=== PATIENT | female | born 1975 | race Caucasian/White ===

== ENCOUNTER 2017-05-03 18:45 | Emergency (ER) | payer BC ==
[2017-05-03 18:49] VITALS: BP 126/90; PULSE 88; RESP 20; TEMP 98
--- NOTE | 2017-05-03 19:23 | ED ---
Upper Extremity HPI - General Chief Complaint: Extremity Injury, Upper Stated Complaint: laceration Time Seen by Provider: 05/03/17 18:53 Source: patient, RN notes reviewed, old records reviewed Mode of arrival: ambulatory Limitations: no limitations - History of Present Illness Initial Comments: 41-year-old female presents to the ED chief complaint of right wrist pain and thumb pain after she fell on outstretched hand. Patient reports that she tripped over a brick in her garden. Patient denies any recent fever or chills. She reports that she's had full range of motion of the wrist and fingers but there is mainly pain with flexion and extension of the thumb. She is right- handed. She denies any previous injuries to the right hand or wrist. Patient denies any recent fever, chills, shortness of breath, chest pain, back pain, abdominal pain, nausea vomiting, numbness or tingling, dysuria or hematuria, constipation or diarrhea, headaches or visual changes, or any other current symptoms Place: home, outdoors - Related Data Home Medications Medication Instructions Recorded Confirmed Amitriptyline HCl [Elavil] 25 mg PO HS 03/20/14 03/25/14 Gabapentin [Neurontin] 300 mg PO TID 03/20/14 03/25/14 traMADol HCl [Ultram] 50 mg PO Q6H PRN 03/20/14 03/25/14 Previous Rx's Medication Instructions Recorded Acetaminophen-Codeine 300-30mg 2 each PO Q6H PRN #30 tablet 03/26/14 [Tylenol #3] Ibuprofen [Motrin] 600 mg PO Q8HR PRN #20 tab 05/03/17 Allergies Allergy/AdvReac Type Severity Reaction Status Date / Time No Known Allergies Allergy Verified 05/03/17 18:49 Review of Systems ROS Statement: Those systems with pertinent positive or pertinent negative responses have been documented in the HPI. ROS Other: All systems not noted in ROS Statement are negative. Past Medical History Past Medical History: Fibromyalgia, Rheumatoid Arthritis (RA) History of Any Multi-Drug Resistant Organisms: None Reported Past Surgical History: Orthopedic Surgery, Tubal Ligation, Uterine Ablation Additional Past Surgical History / Comment(s): left ankle surg., right wrist surg. Past Anesthesia/Blood Transfusion Reactions: No Reported Reaction Past Psychological History: No Psychological Hx Reported Smoking Status: Never smoker Past Alcohol Use History: Rare Past Drug Use History: None Reported - Past Family History Father Family Medical History: Cancer General Exam - General Exam Comments Initial Comments: 41-year-old female. Limitations: no limitations General appearance: alert, in no apparent distress Head exam: Present: atraumatic, normocephalic, normal inspection Eye exam: Present: normal appearance, PERRL, EOMI. Absent: scleral icterus, conjunctival injection, periorbital swelling ENT exam: Present: normal exam, mucous membranes moist Neck exam: Present: normal inspection. Absent: tenderness, meningismus, lymphadenopathy Respiratory exam: Present: normal lung sounds bilaterally. Absent: respiratory distress, wheezes, rales, rhonchi, stridor Cardiovascular Exam: Present: regular rate, normal rhythm, normal heart sounds. Absent: systolic murmur, diastolic murmur, rubs, gallop, clicks GI/Abdominal exam: Present: soft, normal bowel sounds. Absent: distended, tenderness, guarding, rebound, rigid Extremities exam: Present: normal inspection, full ROM, normal capillary refill. Absent: tenderness, pedal edema, joint swelling, calf tenderness Right Elbow exam: Present: normal inspection, full ROM Forearm Wrist exam: Present: tenderness ( over thumb), swelling, tenderness over anatomical snuff box, pain with axial thumb loading. Absent: normal inspection, erythema, other Hand Wrist exam: Present: full ROM, tenderness, swelling. Absent: normal inspection Neuro motor exam: Present: wrist extension intact, thumb opposition intact, thumb IP flexion intact, thumb adduction intact, fingers 2-5 abduction intact Neurosensory exam: Present: radial nerve intact, ulnar nerve intact, median nerve intact Vascular: Present: normal capillary refill Back exam: Present: normal inspection Neurological exam: Present: alert, oriented X3, CN II-XII intact Psychiatric exam: Present: normal affect, normal mood Skin exam: Present: warm, dry, intact, normal color. Absent: rash Course Vital Signs 05/03/17 05/03/17 18:46 19:59 Temperature 98 F 98 F Pulse Rate 88 88 Respiratory 20 20 Rate Blood Pressure 126/90 126/90 O2 Sat by Pulse 98 98 Oximetry Procedures - Orthopedic Splinting/Casting Injury #1 Side: right Upper Extremity Injury Location: wrist Upper Extremity Immobilizer: thumb spica Medical Decision Making - Medical Decision Making 41-year-old female presents to the ED chief complaint of right wrist pain and thumb pain after she fell on outstretched hand. Patient reports that she tripped over a brick in her garden. Patient denies any recent fever or chills. She reports that she's had full range of motion of the wrist and fingers but there is mainly pain with flexion and extension of the thumb. She is right- handed. Patient does have some tenderness and swelling over the thenar eminence. Patient has pain with axial thumb loading. Patient answers reviewed and negative for any fractures. Patient likely has a significant thumb sprain, skiers thumb. Patient was placed in a thumb spica splint. She is also tender over the anatomical snuffbox. Discussed that she needs to remain in splint follow up with orthosis in the next week. Patient agrees to treatment plan will comply. Return parameters were discussed. - Radiology Data Radiology results: report reviewed X-rays negative for any acute process. Disposition Clinical Impression: Sprain of right thumb, Wrist sprain Disposition: HOME SELF-CARE Condition: Good Instructions: Wrist Injury (ED), Skier's Thumb (ED) Additional Instructions: Patient advised to remain in the splint for the next week and a half. Patient should be reevaluated by orthopedics. Patient continues to have pain possibility of needing a re-x-ray taken to confirm no evidence of a scaphoid fracture. Patient should apply ice over the area. Take anti-inflammatory medications as prescribed. Return to the emergency department if any alarming signs or symptoms occur. Prescriptions: Ibuprofen [Motrin] 600 mg PO Q8HR PRN #20 tab PRN Reason: Pain Referrals: Katey Dumont DO [Primary Care Provider] - 1-2 days Franck May DO [Doctor of Osteopathic Medicine] - 1-2 days Time of Disposition: 19:48
--- NOTE | 2017-05-03 19:38 | XR ---
EXAMINATION TYPE: XR hand complete RT DATE OF EXAM: 05/03/2017 COMPARISON: NONE HISTORY: Pain TECHNIQUE: 3 views FINDINGS: Metacarpals appear intact. I see no fracture nor dislocation. Joint spaces are normal. IMPRESSION: Negative right hand exam.
--- NOTE | 2017-05-03 19:40 | XR ---
EXAMINATION TYPE: XR wrist complete RT DATE OF EXAM: 05/03/2017 COMPARISON: NONE HISTORY: Pain TECHNIQUE: 4 views FINDINGS: I see no fracture nor dislocation. Joint spaces are normal. Scaphoid appears normal. IMPRESSION: Normal right wrist
== END 2017-05-03 19:59 | disposition home or self-care (01) ==
LOC: EC 18:45
DX: S63.501A Unspecified sprain of right wrist, initial encounter (principal); S63.601A Unspecified sprain of right thumb, initial encounter; Z79.899 Other long term (current) drug therapy; W01.0XXA Fall on same level from slipping, tripping and stumbling without subsequent striking against object, initial encounter; Y92.007 Garden or yard of unspecified non-institutional (private) residence as the place of occurrence of the external cause
CPT/HCPCS: 29125; 99284

== ENCOUNTER → 2017-08-05 | Outpatient (CLI) | payer BC ==
--- NOTE | 2017-08-07 10:55 | MM ---
Reason for exam: screening (asymptomatic). Last mammogram was performed 3 years and 4 months ago. History: Patient is postmenopausal. Family history of breast cancer in paternal grandmother. Took hormonal contraceptives for 1 year 5 months beginning at age 32. Physical Findings: A clinical breast exam by your physician is recommended on an annual basis and results should be correlated with mammographic findings. MG Screening Mammo w CAD Bilateral CC and MLO view(s) were taken. Prior study comparison: March 21, 2014, bilateral MG screening mammo w CAD. August 20, 2010, bilateral screening mammogram free. There are scattered fibroglandular densities. No significant changes when compared with prior studies. ASSESSMENT: Negative, BI-RAD 1 RECOMMENDATION: Routine screening mammogram of both breasts in 1 year.
== END | disposition home or self-care (01) ==
LOC: RADMAMWWP 11:12
PROVIDERS: ATTEND Family Medicine
DX: Z12.31 Encounter for screening mammogram for malignant neoplasm of breast (principal)

== ENCOUNTER → 2017-08-08 | Outpatient (CLI) | payer BC ==
[2017-08-08 17:24] LABS: Basophils % (A) 1 %; CH 30.1; CHCM 33.7; Eosinophils # (A) 0.1 k/uL (0-0.7); Eosinophils % (A) 2 %; HCT 37.7 % (34.0-46.0); HDW 2.76; HGB 12.6 gm/dL (11.4-16.0); Luc # (Auto) 0.11; Luc % (Auto) 2; Lymphocytes # (A) 1.9 k/uL (1.0-4.8); Lymphocytes % (A) 42 %; MCH 29.9 pg (25.0-35.0); MCHC 33.3 g/dL (31.0-37.0); MCV 89.8 fL (80.0-100.0); Mean Platelet Volume 7.2; Monocytes # (A) 0.2 k/uL (0-1.0); Monocytes % (A) 4 %; Neutrophils # (A) 2.2 k/uL (1.3-7.7); Neutrophils % (A) 50 %; RDW 12.8 % (11.5-15.5); WBC 4.5 k/uL (3.8-10.6); WBC (Perox) 4.68
[2017-08-08 17:49] LABS: ALT 29 U/L (9-52); AST 16 U/L (14-36); Alkaline Phosphatase 61 U/L (38-126); Anion Gap 8 mmol/L; Blood Urea Nitrogen 18 mg/dL (7-17); Calcium 9.2 mg/dL (8.4-10.2); Carbon Dioxide 22 mmol/L (22-30); Chloride 110 mmol/L (98-107); Cholesterol 198 mg/dL (<200); Glucose 81 mg/dL (74-99); HDL Cholesterol 48 mg/dL (40-60); Non-African American GFR(MDRD) >60 (>60 ml/min/1.73 sqM); Potassium 4.5 mmol/L (3.5-5.1); Sodium 140 mmol/L (137-145); Total Bilirubin 0.4 mg/dL (0.2-1.3); Total Protein 6.6 g/dL (6.3-8.2)
[2017-08-08 18:42] LABS: Erythrocyte Sedimentation Rate 9 mm/hr (0-20)
[2017-08-08 20:16] LABS: Hemoglobin A1C 4.7 % (4.2-6.1)
== END | disposition home or self-care (01) ==
LOC: LABWHC1 16:33
PROVIDERS: ATTEND Family Medicine
DX: G43.909 Migraine, unspecified, not intractable, without status migrainosus (principal); M79.7 Fibromyalgia
CPT/HCPCS: 36415; 80053; 80061; 83036; 85025; 85652

== ENCOUNTER → 2018-12-17 | Outpatient (CLI) | payer BC ==
[2018-12-17 12:47] LABS: Basophils % (A) 1 %; Eosinophils # (A) 0.2 k/uL (0-0.7); Eosinophils % (A) 4 %; HCT 40.6 % (34.0-46.0); HGB 13.7 gm/dL (11.4-16.0); Lymphocytes % (A) 35 %; MCH 29.2 pg (25.0-35.0); MCHC 33.7 g/dL (31.0-37.0); MCV 86.7 fL (80.0-100.0); Mean Platelet Volume 6.5; Monocytes # (A) 0.2 k/uL (0-1.0); Monocytes % (A) 3 %; Neutrophils # (A) 3.2 k/uL (1.3-7.7); Neutrophils % (A) 55 %; Platelet Count 184 k/uL (150-450); RBC 4.69 m/uL (3.80-5.40); RDW 13.2 % (11.5-15.5); WBC 5.8 k/uL (3.8-10.6)
[2018-12-17 19:57] LABS: Albumin 4.1 g/dL (3.80-4.90); Albumin/Globulin Ratio 1.86 (1.60-3.17); Anion Gap 7.9 mmol/L (4.00-12.00); Calcium 9.2 mg/dL (8.7-10.3); Carbon Dioxide 26.1 mmol/L (21.6-31.8); Globulin 2.2 g/dL (1.6-3.3); LDL Cholesterol,Calculated 143.2 mg/dL (0.0-131.0); Potassium 4.2 mmol/L (3.5-5.5); Total Bilirubin 0.4 mg/dL (0.3-1.2); Total Protein 6.3 g/dL (6.2-8.2); VLDL Calculation 29.8 mg/dL (5.00-40.00)
[2018-12-17 21:44] LABS: Hemoglobin A1C 4.8 % (4.0-6.0)
== END | disposition home or self-care (01) ==
LOC: LABWHC1 11:29
PROVIDERS: ATTEND Family Medicine
DX: G43.909 Migraine, unspecified, not intractable, without status migrainosus (principal); M79.7 Fibromyalgia
CPT/HCPCS: 36415; 80053; 80061; 83036; 84443; 85025

== ENCOUNTER → 2018-12-28 | Outpatient (CLI) | payer BC ==
--- NOTE | 2018-12-31 13:19 | MM ---
Reason for exam: screening (asymptomatic). Last mammogram was performed 1 year and 5 months ago. History: Patient is postmenopausal. Family history of breast cancer in paternal grandmother. Took hormonal contraceptives for 1 year 5 months beginning at age 32. Physical Findings: A clinical breast exam by your physician is recommended on an annual basis and results should be correlated with mammographic findings. MG 3D Screening Mammo W/Cad Bilateral CC and MLO view(s) were taken. Prior study comparison: August 05, 2017, bilateral MG screening mammo w CAD. March 21, 2014, bilateral MG screening mammo w CAD. There are scattered fibroglandular densities. No significant changes when compared with prior studies. ASSESSMENT: Benign, BI-RAD 2 RECOMMENDATION: Routine screening mammogram of both breasts in 1 year.
== END | disposition home or self-care (01) ==
LOC: RADMAMWWP 16:07
PROVIDERS: ATTEND Family Medicine
DX: Z12.31 Encounter for screening mammogram for malignant neoplasm of breast (principal)
CPT/HCPCS: 77063; 77067

== ENCOUNTER → 2021-01-14 | Outpatient (CLI) | payer BC ==
--- NOTE | 2021-01-18 11:45 | MM ---
Reason for exam: screening (asymptomatic). Last mammogram was performed 2 years and 1 month ago. History: Patient is postmenopausal. Family history of breast cancer in paternal grandmother and breast cancer in sister at age 50. Took hormonal contraceptives for 1 year 5 months beginning at age 32. Physical Findings: A clinical breast exam by your physician is recommended on an annual basis and results should be correlated with mammographic findings. MG Screening Mammo w CAD Bilateral CC and MLO view(s) were taken. Prior study comparison: December 28, 2018, bilateral MG 3d screening mammo w/cad. August 05, 2017, bilateral MG screening mammo w CAD. There are scattered fibroglandular densities. There are benign appearing round calcifications bilaterally. There is no discrete abnormality. ASSESSMENT: Benign, BI-RAD 2 RECOMMENDATION: Routine screening mammogram of both breasts in 1 year.
== END | disposition home or self-care (01) ==
LOC: RADMAMWWP 15:37
PROVIDERS: ATTEND Family Medicine
DX: Z12.31 Encounter for screening mammogram for malignant neoplasm of breast (principal)
CPT/HCPCS: 77067

== ENCOUNTER → 2022-01-18 | Outpatient (CLI) | payer BC ==
--- NOTE | 2022-01-18 08:49 | US ---
EXAMINATION TYPE: US abdomen complete DATE OF EXAM: 01/18/2022 COMPARISON: NONE CLINICAL HISTORY: R10.84 abdominal pain. Pain. EXAM MEASUREMENTS: Liver Length: 17.1 cm Gallbladder Wall: 0.28 cm CBD: 0.37 cm Spleen: 14.0 cm Right Kidney: 11.4 x 6.8 x 4.9 cm Left Kidney: 11.7 x 5.9 x 5.7 cm Limited due to gas and patient body habitus. Pancreas: Tail slightly limited due to gas. Liver: Increased echogenicity and attenuation. Measures upper limits of normal. Appears coarse in ec hotexture. Gallbladder: Limited, there appears to be posterior shadowing in the area of the gallbladder and hyp erechoic areas within. Evidence for sonographic Whaley's sign: No. CBD: Limited, measured at 0.37 cm. Spleen: Measures slightly enlarged. Right Kidney: No hydronephrosis or masses seen Left Kidney: No hydronephrosis or masses seen Upper IVC: Appears wnl Abd Aorta: Proximal portion appears ectatic measuring cm 2.7 cm AP. Limited visibility of iliacs. Suboptimal study. No aneurysm in the visualized portion of the abdominal aorta seen extending through the bifurcation. Visualized portion of pancreas homogeneous in echotexture without worrisome mass or ductal dilatation. IVC is seen near hepatic dome. Visualized liver is heterogeneously hyperechoic in appearance. Evaluation for focal masses suboptimal due to the heterogeneity. No surrounding ascites. No right-sided hydronephrosis. No biliary dilatati on. Gallbladder poorly distended with shadowing internal structure suggesting stone filled contracted gallbladder. Gallbladder wall thickness within normal limits. No surrounding ascites. Sonographic Mu rphy's sign negative. Splenomegaly seen measuring 14.0 cm long axis. No focal intrasplenic mass. No surrounding ascites. Le ft kidney normal in size without hydronephrosis. IMPRESSION: 1. Heterogeneous hyperechoic appearance of liver could reflect product of diffuse fatty infiltration and/or underlying hepatocellular disease. Presence of mild splenomegaly increases suspicion for the l atter. No intra-abdominal ascites identified currently. Correlate clinically. Imaging guided random b iopsy of liver can be performed to further evaluate if desired. 2. Stone filled somewhat contracted gallbladder without secondary ultrasound evidence for acute maya cystitis.
--- NOTE | 2022-01-18 10:21 | US ---
EXAMINATION TYPE: US pelvis complete transvag DATE OF EXAM: 01/18/2022 COMPARISON: NONE CLINICAL HISTORY: R10.84 abdominal pain. Chronic LLQ pain. Hx 1 miscarriage. Hysterectomy. Patient munguia s both ovaries. . TECHNIQUE: Transvaginal (TV) and Transabdominal (TA) . Transabdominal sonographic images of the pel vis were acquired. Transvaginal sonographic images were medically necessary to better assess the fol lowing anatomy: ovaries. Date of LMP: At time of hysterectomy. EXAM MEASUREMENTS: Right Ovary: Not visualized. Left Ovary: 4.1 x 3.4 x 2.5 cm 1. Uterus: Surgically absent. 2. Endometrium: - 3. Right Ovary: Not visualized. 4. Left Ovary: Anechoic areas seen. #1: 1.6 x 1.3 x 1.0 cm. #2: 1.1 x 1.8 x 1.6 cm. 5. Bilateral Adnexa: Fluid seen within the right adnexa. 6. Posterior cul-de-sac: Appears wnl. Uterus is surgically absent. Left ovary is normal in size. Left ovary has slightly lobulated contour. Possible thin-walled 1.3 cm cyst in the periphery of left ovary not completely anechoic suggesting s ome internal blood products. Trace free fluid in the right adnexa. Right ovary not clearly identified. IMPRESSION: No suspicious adnexal masses. Normal or abnormal right ovary not identified.
== END | disposition home or self-care (01) ==
LOC: RADUSWWP 06:55
PROVIDERS: ATTEND Family Medicine
DX: K76.89 Other specified diseases of liver (principal); K82.8 Other specified diseases of gallbladder
CPT/HCPCS: 76700; 76830; 76856

== ENCOUNTER → 2022-02-16 | Outpatient (CLI) | payer BC ==
--- NOTE | 2022-02-17 11:43 | MM ---
Reason for exam: screening (asymptomatic). Last mammogram was performed 1 year and 1 month ago. History: Patient is postmenopausal, history of colon cancer, and history of other cancer. Family history of breast cancer in paternal grandmother and breast cancer in sister at age 50. Took hormonal contraceptives for 1 year 5 months beginning at age 32. Physical Findings: A clinical breast exam by your physician is recommended on an annual basis and results should be correlated with mammographic findings. MG 3D Screening Mammo W/Cad Bilateral CC, MLO, and XCCL view(s) were taken. Prior study comparison: January 14, 2021, bilateral MG screening mammo w CAD. August 05, 2017, bilateral MG screening mammo w CAD. There are scattered fibroglandular densities. No significant changes when compared with prior studies. ASSESSMENT: Benign, BI-RAD 2 RECOMMENDATION: Routine screening mammogram of both breasts in 1 year.
== END | disposition home or self-care (01) ==
LOC: RADMAMWWP 10:46
PROVIDERS: ATTEND Family Medicine
DX: Z12.31 Encounter for screening mammogram for malignant neoplasm of breast (principal); Z78.0 Asymptomatic menopausal state; Z85.038 Personal history of other malignant neoplasm of large intestine; Z80.3 Family history of malignant neoplasm of breast
CPT/HCPCS: 77063; 77067

== ENCOUNTER → 2022-10-03 | Outpatient (CLI) | payer BC ==
[2022-10-03 15:19] LABS: HCT 44.3 % (37.2-46.3); MCH 28.7 pg (27.0-32.0); MCHC 31.6 g/dL (32.0-37.0); MCV 90.8 fL (80.0-97.0); Mean Platelet Volume 11.3 fL (9.5-12.2); NRBC Per 100 WBC 0 /100 WBCS (0.0-0.0); Platelet Count 140 X 10*3/uL (140-440); RBC 4.88 X 10*6/uL (4.10-5.20); WBC 4.75 X 10*3/uL (4.50-10.00)
[2022-10-03 15:31] LABS: ALT 22 U/L (8-44); AST 11 U/L (13-35); African American GFR (CKD) 118.9 (60.0-200.0); Albumin 4.1 g/dL (3.8-4.9); Albumin/Globulin Ratio 1.97 (1.60-3.17); Alkaline Phosphatase 67 U/L (41-126); BUN/Creat Ratio 23.35 Ratio (12.00-20.00); Blood Urea Nitrogen 16.3 mg/dL (9.0-27.0); Calcium 9.2 mg/dL (8.7-10.3); Carbon Dioxide 21.7 mmol/L (20.0-27.5); Chloride 107 mmol/L (96-109); Chol/HDL Ratio 4.54 Ratio; Globulin 2.1 g/dL (1.6-3.3); Glucose 88 mg/dL (70-110); LDL Cholesterol,Calculated 113.7 mg/dL (0.0-131.0); Non-African American GFR(CKD) 102.6 (60.0-200.0); Potassium 4.1 mmol/L (3.5-5.5); Sodium 141 mmol/L (135-145); Total Protein 6.1 g/dL (6.2-8.2)
[2022-10-03 15:32] LABS: Iron 55 ug/dL (50-170)
[2022-10-04 10:13] LABS: Zinc, Serum 76 ug/dL (60-130)
[2022-10-05 01:49] LABS: % Iron Saturation 21.51 (12.00-45.00); Total Iron Binding Capacity 258 ug/dL (228-460)
== END | disposition home or self-care (01) ==
LOC: LABWHC1 09:19
DX: E11.9 Type 2 diabetes mellitus without complications (principal); K91.1 Postgastric surgery syndromes; D51.8 Other vitamin B12 deficiency anemias; E55.9 Vitamin D deficiency, unspecified; E78.00 Pure hypercholesterolemia, unspecified; D50.9 Iron deficiency anemia, unspecified; Z98.84 Bariatric surgery status
CPT/HCPCS: 36415; 80053; 80061; 82306; 82607; 82728; 82746; 83036; 83540; 83550; 84207; 84425; 84590; 84630; 85027

== ENCOUNTER → 2023-01-13 | Outpatient (CLI) | payer BC ==
[2023-01-13 11:24] LABS: % Iron Saturation 30.68 (12.00-45.00); ALT 8 U/L (8-44); AST 9 U/L (13-35); African American GFR (CKD) 97.7 (60.0-200.0); Albumin 3.8 g/dL (3.8-4.9); Albumin/Globulin Ratio 1.49 (1.60-3.17); Alkaline Phosphatase 54 U/L (41-126); BUN/Creat Ratio 16.26 Ratio (12.00-20.00); Blood Urea Nitrogen 13.3 mg/dL (9.0-27.0); Calcium 9.5 mg/dL (8.7-10.3); Carbon Dioxide 26.1 mmol/L (20.0-27.5); Chloride 108 mmol/L (96-109); Chol/HDL Ratio 5.09 Ratio; Ferritin 88.9 ng/mL (10.0-291.0); Globulin 2.5 g/dL (1.6-3.3); Glucose 94 mg/dL (70-110); Iron 68 ug/dL (50-170); LDL Cholesterol,Calculated 132.1 mg/dL (0.0-131.0); Non-African American GFR(CKD) 84.3 (60.0-200.0); Potassium 4.7 mmol/L (3.5-5.5); Sodium 143 mmol/L (135-145); Total Iron Binding Capacity 223 ug/dL (228-460); Total Protein 6.3 g/dL (6.2-8.2); VLDL Calculation 19.82 mg/dL (5.00-40.00)
[2023-01-13 11:44] LABS: HCT 40.7 % (37.2-46.3); HGB 13.4 g/dL (12.0-15.0); MCH 30.1 pg (27.0-32.0); MCHC 32.9 g/dL (32.0-37.0); MCV 91.5 fL (80.0-97.0); Mean Platelet Volume 10.7 fL (9.5-12.2); NRBC Per 100 WBC 0 /100 WBCS (0.0-0.0); Platelet Count 138 X 10*3/uL (140-440); RBC 4.45 X 10*6/uL (4.10-5.20); RDW 12.6 % (11.5-14.5); WBC 4.61 X 10*3/uL (4.50-10.00)
== END | disposition home or self-care (01) ==
LOC: LABWHC1 08:04
DX: E11.9 Type 2 diabetes mellitus without complications (principal); E55.9 Vitamin D deficiency, unspecified; E78.00 Pure hypercholesterolemia, unspecified; D50.9 Iron deficiency anemia, unspecified; Z98.890 Other specified postprocedural states; Z98.84 Bariatric surgery status; Z94.84 Stem cells transplant status
CPT/HCPCS: 36415; 80053; 80061; 82306; 82607; 82728; 82746; 83036; 83540; 83550; 84207; 84425; 84590; 84630; 85027

== ENCOUNTER → 2023-04-20 | Outpatient (CLI) | payer BC ==
[2023-04-20 16:12] LABS: % Iron Saturation 22.63 (12.00-50.00); BUN/Creat Ratio 16.89 Ratio (12.00-20.00); Blood Urea Nitrogen 15.2 mg/dL (9.0-27.0); Chol/HDL Ratio 4.93 Ratio; Glucose 98 mg/dL (70-110); Iron 62 UG/DL (50-175); LDL Cholesterol,Calculated 147.3 mg/dL (0.0-131.0); Total Iron Binding Capacity 274 UG/DL (228-460)
[2023-04-20 16:13] LABS: ALT 10 U/L (8-49); AST 12 U/L (13-35); Alkaline Phosphatase 61 U/L (41-126); Calcium 9.5 mg/dL (8.7-10.3); Carbon Dioxide 25.5 mmol/L (21.6-31.8); Chloride 109 mmol/L (96-109); Ferritin 67.5 ng/mL (10.0-322.0); Globulin 2.5 d/dL (1.6-3.3); Potassium 4.7 mmol/L (3.5-5.5); Sodium 143 mmol/L (135-145); Total Bilirubin 0.3 mg/dL (0.3-1.2); Total Protein 6.5 d/dL (6.2-8.2)
[2023-04-20 16:29] LABS: HCT 42.6 % (37.2-50.0); HGB 13.5 d/dL (12.0-15.0); MCH 29.3 pg (27.0-32.0); MCHC 31.7 d/dL (32.0-37.0); MCV 92.6 FL (80.0-97.0); Mean Platelet Volume 10.7 FL (9.5-12.2); NRBC Per 100 WBC 0 X 10*3/uL (0.00-0.01); Platelet Count 152 X 10*3/uL (140-440); WBC 4.65 X 10*3/uL (4.50-10.00)
[2023-04-21 12:02] LABS: Zinc, Serum 70 ug/dL (60-130)
== END | disposition home or self-care (01) ==
LOC: LABWHC1 08:11
PROVIDERS: ATTEND Surgery
DX: E11.9 Type 2 diabetes mellitus without complications (principal); Z98.84 Bariatric surgery status; D50.9 Iron deficiency anemia, unspecified; K91.1 Postgastric surgery syndromes; D51.8 Other vitamin B12 deficiency anemias; E55.9 Vitamin D deficiency, unspecified; E78.00 Pure hypercholesterolemia, unspecified
CPT/HCPCS: 36415; 80053; 80061; 82306; 82607; 82728; 82746; 83036; 83540; 83550; 84207; 84425; 84590; 84630; 85027

== ENCOUNTER 2023-06-10 11:23 | Observation (INO) | payer BC ==
[2023-06-10 11:39] LABS: Glucose,Whole Blood 110 mg/dL (70-110)
[2023-06-10] MEDS ORDERED: DIPH,PERTUS(ACELL)TETVAC-LF 0.5 ML VIAL IM ONE (11:44)
--- NOTE | 2023-06-10 11:49 | ED ---
General Adult HPI - General Chief complaint: Syncope Stated complaint: Syncope Time Seen by Provider: 06/10/23 11:30 Source: patient, RN notes reviewed Mode of arrival: ambulatory Limitations: no limitations - History of Present Illness Initial comments: Patient is a pleasant 47-year-old female presenting to the emergency department with concerns with syncopal episode. Patient had an episode today while walking. Patient felt slightly dizzy prior to syncope. Patient did fall and pulled out her ear ring on the left side otherwise no injury. A sauer did have a similar episode occur on , 2 days ago. Patient did hurt her left shoulder at that time. Patient was unresponsive for approximately 1 minute on . Patient was unresponsive for a couple minutes today. No chest pain or dyspnea. No back pain. No abdominal pain. No headache or confusion. Patient does not recall these episodes. - Related Data Home Medications Medication Instructions Recorded Confirmed Amitriptyline HCl [Elavil] 25 mg PO HS 03/20/14 03/25/14 Gabapentin [Neurontin] 300 mg PO TID 03/20/14 03/25/14 traMADol HCl [Ultram] 50 mg PO Q6H PRN 03/20/14 03/25/14 Previous Rx's Medication Instructions Recorded Acetaminophen-Codeine 300-30mg 2 each PO Q6H PRN #30 tablet 03/26/14 [Tylenol #3] Ibuprofen [Motrin] 600 mg PO Q8HR PRN #20 tab 05/03/17 Allergies Allergy/AdvReac Type Severity Reaction Status Date / Time No Known Allergies Allergy Verified 06/10/23 11:27 Review of Systems ROS Statement: Those systems with pertinent positive or pertinent negative responses have been documented in the HPI. ROS Other: All systems not noted in ROS Statement are negative. Constitutional: Denies: fever Eyes: Denies: eye pain ENT: Denies: ear pain Respiratory: Denies: cough Cardiovascular: Denies: chest pain Endocrine: Denies: fatigue Gastrointestinal: Denies: abdominal pain Genitourinary: Denies: dysuria Musculoskeletal: Denies: back pain Skin: Denies: rash Neurological: Reports: as per HPI. Denies: headache, weakness Past Medical History Past Medical History: Fibromyalgia, Rheumatoid Arthritis (RA) History of Any Multi-Drug Resistant Organisms: None Reported Past Surgical History: Orthopedic Surgery, Tubal Ligation, Uterine Ablation Additional Past Surgical History / Comment(s): left ankle surg., right wrist surg. Gastric Sleeve 2021 Past Anesthesia/Blood Transfusion Reactions: No Reported Reaction Past Psychological History: No Psychological Hx Reported Smoking Status: Never smoker Past Alcohol Use History: Rare Past Drug Use History: None Reported - Past Family History Father Family Medical History: Cancer General Exam Limitations: no limitations General appearance: alert, in no apparent distress Head exam: Present: other (Minimal blood left ear) Eye exam: Present: normal appearance, PERRL, EOMI. Absent: nystagmus ENT exam: Present: normal oropharynx Neck exam: Present: normal inspection. Absent: tenderness Respiratory exam: Present: normal lung sounds bilaterally Cardiovascular Exam: Present: regular rate, normal rhythm Expanded Peripheral pulses: 2+: Radial (R), Radial (L), Dorsalis Pedis (R), Dorsalis Pedis (L) GI/Abdominal exam: Present: soft. Absent: distended, tenderness, pulsatile mass Extremities exam: Present: normal inspection, full ROM, tenderness (Minimal left shoulder with ecchymosis) Neurological exam: Present: alert, oriented X3, CN II-XII intact. Absent: motor sensory deficit Expanded Neurological exam: Present: protecting the airway Speech: Present: fluid speech Cranial nerves: EOM's Intact: Normal Sensory exam: Upper Extremity Light Touch: Normal, Lower Extremity Light Touch: Normal Motor strength exam: RUE: 5, LUE: 5, RLE: 5, LLE: 5 Eye Response: (4) open spontaneously Motor Response: (6) obeys commands Verbal Response: (5) oriented Psychiatric exam: Present: normal affect, normal mood Skin exam: Present: other (Ecchymosis left shoulder) Course Vital Signs 06/10/23 11:24 Temperature 98.3 F Pulse Rate 76 Respiratory 20 Rate Blood Pressure 112/82 O2 Sat by Pulse 97 Oximetry EKG Findings - EKG Results: EKG: interpreted by ERMD, sinus rhythm, normal axis, normal QRS, normal ST/T Medical Decision Making - Medical Decision Making Was pt. sent in by a medical professional or institution (, PA, CRYST[employer] MOUNTER, urgent care, hospital, or correction...) When possible be specific @ -No Did you speak to anyone other than the patient for history (EMS, parent, family, police, friend...)? What history was obtained from this source @ - is present and helps describe syncopal episodes. No reported seizure visualized. Did you review nursing and triage notes (agree or disagree)? Why? @ -I reviewed and agree with nursing and triage notes Were old charts reviewed (outside hosp., previous admission, EMS record, old EKG, old radiological studies, urgent care reports/EKG's, correction records)? Report findings @ -No old charts were reviewed Differential Diagnosis (chest pain, altered mental status, abdominal pain women, abdominal pain men, vaginal bleeding, weakness, fever, dyspnea, syncope, headache, dizziness, GI bleed, back pain, seizure, CVA, palpatations, mental health, musculoskeletal)? @ -Differential Syncope: Valvular disease, hypertrophic cardiomyopathy, pulmonary embolism, tamponade, tachycardia, bradycardia, MO, hypovolemia, hemorrhage, dissection, anemia, intracranial hemorrhage, seizure, hypoglycemia, carbon monoxide poisoning, this is not meant to be an all-inclusive list. EKG interpreted by me (3pts min.). @ -As above X-rays interpreted by me (1pt min.). @ -Chest x-ray left shoulder x-ray did not reveal acute abnormality CT interpreted by me (1pt min.). @ -None done U/S interpreted by me (1pt. min.). @ -None done What testing was considered but not performed or refused? (CT, X-rays, U/S, labs)? Why? @ -None What meds were considered but not given or refused? Why? @ -None Did you discuss the management of the patient with other professionals (professionals i.e. , PA, CRYST[employer] MOUNTER, lab, RT, psych nurse, social services director, official court reporter, teacher, security police officer, case checker)? Give summary @ -Case was discussed with Dr. Maldonado, who will admit covering hospital call. Was smoking cessation discussed for >3mins.? @ -No Was critical care preformed (if so, how long)? @ -No Were there social determinants of health that impacted care today? How? (Homelessness, low income, unemployed, alcoholism, drug addiction, transportation, low edu. Level, literacy, decrease access to med. care, residential, rehab)? @ -No Was there de-escalation of care discussed even if they declined (Discuss DNR or withdrawal of care, Hospice)? DNR status @ -No What co-morbidities impacted this encounter? (DM, HTN, Smoking, COPD, CAD, Cancer, CVA, ARF, Chemo, Hep., AIDS, mental health diagnosis, sleep apnea, morbid obesity)? @ -None Was patient admitted / discharged? Hospital course, mention meds given and route, prescriptions, significant lab abnormalities, going to OR and other pertinent info. @ -Patient reevaluated and resting comfortably in bed. Patient and family updated on results and plan. Patient will be admitted secondary to 2 syncopal episodes in the past 2 days. Admission orders written. Undiagnosed new problem with uncertain prognosis? @ -No Drug Therapy requiring intensive monitoring for toxicity (Heparin, Nitro, Insuli n, Cardizem)? @ -No Were any procedures done? @ -No Diagnosis/symptom? @ -Syncope Acute, or Chronic, or Acute on Chronic? @ -Acute Uncomplicated (without systemic symptoms) or Complicated (systemic symptoms)? @ -default Side effects of treatment? @ -No Exacerbation, Progression, or Severe Exacerbation? @ -No Poses a threat to life or bodily function? How? (Chest pain, USA, MO, pneumonia, PE, COPD, DKA, ARF, appy, cholecystitis, CVA, Diverticulitis, Homicidal, Suicidal, threat to staff... and all critical care pts) @ -No - Lab Data Result diagrams: 06/10/23 11:46 06/10/23 11:46 Lab Results 06/10/23 06/10/23 06/10/23 Range/Units 11:38 11:46 11:46 WBC 7.1 (3.8-10.6) k/uL RBC 4.80 (3.80-5.40) m/uL Hgb 14.9 (11.4-16.0) gm/dL Hct 43.4 (34.0-46.0) % MCV 90.3 (80.0-100.0) fL MCH 31.1 (25.0-35.0) pg MCHC 34.5 (31.0-37.0) g/dL RDW 12.8 (11.5-15.5) % Plt Count 157 (150-450) k/uL MPV 7.6 Neutrophils % 67 % Lymphocytes % 25 % Monocytes % 4 % Eosinophils % 2 % Basophils % 1 % Neutrophils # 4.7 (1.3-7.7) k/uL Lymphocytes # 1.8 (1.0-4.8) k/uL Monocytes # 0.3 (0-1.0) k/uL Eosinophils # 0.2 (0-0.7) k/uL Basophils # 0.1 (0-0.2) k/uL PT 10.0 (9.0-12.0) sec INR 0.9 (<1.2) APTT 23.4 (22.0-30.0) sec D-Dimer 0.54 (<0.60) mg/L FEU Sodium (137-145) mmol/L Potassium (3.5-5.1) mmol/L Chloride (98-107) mmol/L Carbon Dioxide (22-30) mmol/L Anion Gap mmol/L BUN (7-17) mg/dL Creatinine (0.52-1.04) mg/dL Est GFR (CKD-EPI)AfAm (>60 ml/min/1.73 sqM) Est GFR (CKD-EPI)NonAf (>60 ml/min/1.73 sqM) Glucose (74-99) mg/dL POC Glucose (mg/dL) 110 (70-110) mg/dL POC Glu Trackwalker ID Ortiz [place] Calcium (8.4-10.2) mg/dL Magnesium (1.6-2.3) mg/dL Total Bilirubin (0.2-1.3) mg/dL AST (14-36) U/L ALT (4-34) U/L Alkaline Phosphatase (38-126) U/L Troponin I (0.000-0.034) ng/mL Total Protein (6.3-8.2) g/dL Albumin (3.5-5.0) g/dL 06/10/23 06/10/23 Range/Units 11:46 11:46 WBC (3.8-10.6) k/uL RBC (3.80-5.40) m/uL Hgb (11.4-16.0) gm/dL Hct (34.0-46.0) % MCV (80.0-100.0) fL MCH (25.0-35.0) pg MCHC (31.0-37.0) g/dL RDW (11.5-15.5) % Plt Count (150-450) k/uL MPV Neutrophils % % Lymphocytes % % Monocytes % % Eosinophils % % Basophils % % Neutrophils # (1.3-7.7) k/uL Lymphocytes # (1.0-4.8) k/uL Monocytes # (0-1.0) k/uL Eosinophils # (0-0.7) k/uL Basophils # (0-0.2) k/uL PT (9.0-12.0) sec INR (<1.2) APTT (22.0-30.0) sec D-Dimer (<0.60) mg/L FEU Sodium 140 (137-145) mmol/L Potassium 4.1 (3.5-5.1) mmol/L Chloride 106 (98-107) mmol/L Carbon Dioxide 28 (22-30) mmol/L Anion Gap 6 mmol/L BUN 15 (7-17) mg/dL Creatinine 0.85 (0.52-1.04) mg/dL Est GFR (CKD-EPI)AfAm >90 (>60 ml/min/1.73 sqM) Est GFR (CKD-EPI)NonAf 81 (>60 ml/min/1.73 sqM) Glucose 108 H (74-99) mg/dL POC Glucose (mg/dL) (70-110) mg/dL POC Glu Trackwalker ID Calcium 9.3 (8.4-10.2) mg/dL Magnesium 1.8 (1.6-2.3) mg/dL Total Bilirubin 0.5 (0.2-1.3) mg/dL AST 22 (14-36) U/L ALT 14 (4-34) U/L Alkaline Phosphatase 59 (38-126) U/L Troponin I <0.012 (0.000-0.034) ng/mL Total Protein 7.1 (6.3-8.2) g/dL Albumin 4.1 (3.5-5.0) g/dL Disposition Clinical Impression: Syncopal episodes Disposition: ADMITTED IP TO THIS [facility] Is patient prescribed a controlled substance at d/c from ED?: No Referrals: Katey Dumont DO [Primary Care Provider] - 1-2 days Time of Disposition: 13:54
[2023-06-10 12:06] LABS: Basophils # (A) 0.1 k/uL (0-0.2); Basophils % (A) 1 %; Eosinophils # (A) 0.2 k/uL (0-0.7); Eosinophils % (A) 2 %; HCT 43.4 % (34.0-46.0); HGB 14.9 gm/dL (11.4-16.0); Lymphocytes # (A) 1.8 k/uL (1.0-4.8); Lymphocytes % (A) 25 %; MCH 31.1 pg (25.0-35.0); MCHC 34.5 g/dL (31.0-37.0); MCV 90.3 fL (80.0-100.0); Mean Platelet Volume 7.6; Monocytes # (A) 0.3 k/uL (0-1.0); Monocytes % (A) 4 %; Neutrophils # (A) 4.7 k/uL (1.3-7.7); Neutrophils % (A) 67 %; Platelet Count 157 k/uL (150-450); RDW 12.8 % (11.5-15.5); WBC 7.1 k/uL (3.8-10.6)
--- NOTE | 2023-06-10 12:14 | XR ---
EXAMINATION TYPE: XR shoulder complete LT DATE OF EXAM: 06/10/2023 CLINICAL HISTORY: pain COMPARISON: NONE TECHNIQUE: Three views of the left shoulder are obtained. FINDINGS: There is no acute fracture/dislocation evident. Slight elevation distal left clavicle richards leif appears symmetric on chest radiograph. The visualized ribs are intact and unremarkable. IMPRESSION: 1. There is no acute fracture. ICD 10 NO FRACTURE, INITIAL EVALUATION
--- NOTE | 2023-06-10 12:15 | XR ---
EXAMINATION TYPE: XR chest 2V DATE OF EXAM: 06/10/2023 COMPARISON: NONE HISTORY: Chest pain TECHNIQUE: Frontal and lateral views of the chest are obtained. FINDINGS: There is no focal air space opacity. No evidence for pneumothorax. No pleural effusion. The cardiac silhouette size is within normal limits. The osseous structures are grossly intact. IMPRESSION: 1. No acute cardiopulmonary process.
[2023-06-10 12:22] LABS: INR 0.9 (<1.2); Partial Thromboplastin Time 23.4 sec (22.0-30.0)
[2023-06-10 12:33] LABS: ALT 14 U/L (4-34); AST 22 U/L (14-36); African American GFR (CKD) >90 (>60 ml/min/1.73 sqM); Albumin 4.1 g/dL (3.5-5.0); Alkaline Phosphatase 59 U/L (38-126); Anion Gap 6 mmol/L; Blood Urea Nitrogen 15 mg/dL (7-17); Calcium 9.3 mg/dL (8.4-10.2); Carbon Dioxide 28 mmol/L (22-30); Chloride 106 mmol/L (98-107); Glucose 108 mg/dL (74-99); Magnesium 1.8 mg/dL (1.6-2.3); Non-African American GFR(CKD) 81 (>60 ml/min/1.73 sqM); Potassium 4.1 mmol/L (3.5-5.1); Sodium 140 mmol/L (137-145); Total Bilirubin 0.5 mg/dL (0.2-1.3); Total Protein 7.1 g/dL (6.3-8.2)
[2023-06-10] MEDS ORDERED: NALOXONE 0.4 MG/ML 1 ML VIAL IV PRN (13:54)
[2023-06-10] MEDS: ACETAMINOPHEN TAB 325 MG TAB PO PRN (14:42)
[2023-06-10] MEDS: SODIUM CHLORIDE 0.9% 1,000 ML IV SCH (14:44)
--- NOTE | 2023-06-10 18:04 | P.HPIM ---
History of Present Illness H&P Date: 06/10/23 Chief Complaint: Syncope 47-year-old woman with medical history of gastric sleeve surgery, fibromyalgia presented for evaluation of syncope. Patient says that this is her second episode of syncope today, the first was on in which she walked into the hallway feeling in her usual state of health when suddenly she had a syncopal episode, hit her shoulder on the way down to the floor and then woke up. She had no preceding symptoms including diaphoresis, sweats, flushing, palpitations. She had a similar episode again today and when she fell and hit the dresser on her way down, she had 1-2 seconds of dizziness just prior to this episode according to her. She denies fevers, chills, nausea, vomiting, chest pain, cough, dyspnea, abdominal pain, constipation, diarrhea, dysuria, dyschezia, numbness/weakness of extremities. Today, patient is afebrile, 120/82, heart rate 76, 97% on room air. CBC is unremarkable. Basic metabolic panel was unremarkable. Liver function tests are unremarkable. Troponins less than 0.012 him a repeat troponins less than 0.012. Coags are unremarkable. D-dimer is unremarkable. EKG shows a sinus rhythm with low total voltage of QRS. Shoulder x-ray had no acute fracture. Chest x-ray shows normal-sized heart, clear parenchyma bilaterally. Case was discussed with the emergency room provider incision was made to admit the patient to observation for syncope. All Systems reviewed and pertinent positives and negatives noted in HPI, all other symptoms are negative Gen: in no apparent distress, resting comfortably in bed Eyes: PERRL, no scleral injection or icterus HENT: normocephalic, atraumatic, good hearing acuity, moist mucous membranes Neck: no tracheal deviation, full range of motion Resp: good air exchange, breathing comfortably with no accessory muscle use, no tactile fremitus, clear to auscultation bilaterally CVS: good distal perfusion x 4, no pitting edema, regular rate and rhythm without murmurs GI: soft, NTTP, ND, no hepatosplenomegaly : no suprapubic tenderness, no CVAT, car catheter not present MSK: no clubbing, no cyanosis, no noted contractures of extremities Skin: no noted rashes, petechiae; temperature of skin is appropriate Neuro: moving all extremities without signs of weakness, CN II-XII intact Psych: cooperative, euthymic mood, insight and judgment intact Labs and imaging as above Assessment/plan: Vital signs reviewed and noted in the HPI Lab work reviewed and noted in the HPI EKG and CXR are personally interpreted and noted in the HPI Case was discussed with the Emergency Room provider and decision was made to admit the patient for syncope Cardiology consult Echocardiogram Monitor on telemetry KVO IV fluids Orthostatics twice daily Patient is full code Past Medical History Past Medical History: Fibromyalgia, Rheumatoid Arthritis (RA) History of Any Multi-Drug Resistant Organisms: None Reported Past Surgical History: Orthopedic Surgery, Tubal Ligation, Uterine Ablation Additional Past Surgical History / Comment(s): left ankle surg., right wrist surg. Gastric Sleeve 2021 Past Anesthesia/Blood Transfusion Reactions: No Reported Reaction Past Psychological History: No Psychological Hx Reported Smoking Status: Never smoker Past Alcohol Use History: Rare Past Drug Use History: None Reported - Past Family History Father Family Medical History: Cancer Medications and Allergies Home Medications Medication Instructions Recorded Confirmed Type traMADol HCl [Ultram] 50 mg PO DAILY PRN 03/20/14 06/10/23 History Acetaminophen [Tylenol Extra 1,000 mg PO Q6H PRN 06/10/23 06/10/23 History Strength] Amitriptyline HCl [Elavil] 100 mg PO HS 06/10/23 06/10/23 History Cyclobenzaprine [Flexeril] 10 mg PO HS PRN 06/10/23 06/10/23 History DULoxetine HCL [Cymbalta] 60 mg PO HS 06/10/23 06/10/23 History Gabapentin [Neurontin] 400 mg PO TID 06/10/23 06/10/23 History Propranolol HCl [Propranolol HCl 80 mg PO HS 06/10/23 06/10/23 History ER] Allergies Allergy/AdvReac Type Severity Reaction Status Date / Time No Known Allergies Allergy Verified 06/10/23 14:02 Physical Exam Osteopathic Statement: *. No significant issues noted on an osteopathic structural exam other than those noted in the History and Physical/Consult. Vitals: Vital Signs Temp Pulse Pulse Pulse Pulse Pulse Resp 06/10/23 17:15 77 89 67 06/10/23 17:00 98.7 F 72 16 06/10/23 16:20 76 16 06/10/23 14:48 66 18 06/10/23 11:24 98.3 F 76 20 BP BP BP BP BP Pulse Ox 06/10/23 17:15 114/97 110/82 103/71 98 06/10/23 17:00 128/75 97 06/10/23 16:20 100/68 99 06/10/23 14:48 104/77 99 06/10/23 11:24 112/82 97 Intake and Output 06/10/23 06/10/23 06/10/23 06:59 14:59 22:59 Other: Weight 103.873 kg Results CBC & Chem 7: 06/10/23 11:46 06/10/23 11:46 Labs: Abnormal Lab Results - Last 24 Hours (Table) 06/10/23 Range/Units 11:46 Glucose 108 H (74-99) mg/dL
[2023-06-10] MEDS ORDERED: CYCLOBENZAPRINE 10 MG TAB PO PRN (21:32)
[2023-06-10] MEDS: AMITRIPTYLINE HCL 50 MG TAB PO SCH (21:54)
[2023-06-10] MEDS: GABAPENTIN 400 MG CAP PO SCH (21:55)
[2023-06-10] MEDS: PROPRANOLOL LA 80 MG CAP.SA.24H PO SCH (21:55)
[2023-06-10] MEDS: DULoxetine HCL 60 MG CAPSULE.DR PO SCH (21:55)
[2023-06-11] MEDS: GABAPENTIN 400 MG CAP PO SCH ×3 (08:32→19:57)
[2023-06-11] MEDS: ACETAMINOPHEN TAB 325 MG TAB PO PRN (08:34)
[2023-06-11 10:48] LABS: Basophils # (A) 0.03 X 10*3/uL (0.00-0.10); Basophils % (A) 0.6 %; Eosinophils # (A) 0.08 X 10*3/uL (0.04-0.35); Eosinophils % (A) 1.6 %; HCT 39.3 % (37.2-50.0); HGB 13.3 d/dL (12.0-17.0); Lymphocytes # (A) 1.98 X 10*3/uL (0.90-5.00); Lymphocytes % (A) 40.4 %; MCH 30.6 pg (27.0-32.0); MCHC 33.8 d/dL (32.0-37.0); MCV 90.3 FL (80.0-97.0); Mean Platelet Volume 10.5 FL (9.5-12.2); Monocytes # (A) 0.36 X 10*3/uL (0.20-1.00); Monocytes % (A) 7.3 %; NRBC Per 100 WBC 0 X 10*3/uL (0.00-0.01); Neutrophils # (A) 2.44 X 10*3/uL (1.80-7.70); Neutrophils % (A) 49.9 %; Platelet Count 111 X 10*3/uL (140-440); RBC 4.35 X 10*6/uL (4.10-5.60); RDW 12.1 % (11.5-14.5)
[2023-06-11 12:32] LABS: ALT 12 U/L (8-49); AST 20 U/L (13-35); Albumin 3.8 d/dL (3.8-4.9); Albumin/Globulin Ratio 1.81 Ratio (1.60-3.17); Alkaline Phosphatase 52 U/L (41-126); Calcium 9.7 mg/dL (8.7-10.3); Carbon Dioxide 24.5 mmol/L (21.6-31.8); Chloride 106 mmol/L (96-109); Globulin 2.1 d/dL (1.6-3.3); Glucose 84 mg/dL (70-110); Sodium 140 mmol/L (135-145); Total Bilirubin 0.6 mg/dL (0.3-1.2); Total Protein 5.9 d/dL (6.2-8.2)
--- NOTE | 2023-06-11 13:05 | P.CRDCN ---
History of Present Illness Consult date: 06/11/23 Consult reason: sycope History of present illness: This is jC Curry NP, I'm dictating on behalf of Dr. Serra's H&P and A&P The patient was interviewed and examined. HPI: Patient is a pleasant 47-year-old female with a past medical history of fibromyalgia, rheumatoid arthritis, and gastric sleeve surgery who presented the hospital post syncopal episode. Patient reports she's had 2 syncopal episodes over the last 2 days, both while she was walking in her hallway. She states this past , her episode had no trigger, but she suddenly woke up on the floor. Yesterday, she felt somewhat dizzy prior to passing out. Both episodes were witnessed by her spouse, who reports that she was down for only a couple minutes during each episode. Patient reported that she had no chest pain, fluttering in her chest, palpitations, or any diaphoresis during these episodes. She does report after waking up she felt somewhat flushed and warm. After the second episode the patient presented to the emergency department for evaluation. Her EKG demonstrated normal sinus rhythm with no signs of myocardial infarction. Patient's lab work was noncontributory, demonstrating 3 negative troponins, hemoglobin of 14.9, d-dimer of 0.54, potassium 4.1, BUN of 15, and creatinine 0.85. Patient reports this morning that she feels okay, and has not had any further syncopal feelings since admission. She denies chest pain, shortness of breath, and heart palpitations at this time. ROS: [No fever, chills, or rigors] [no cough, phlegm, or expectoration] [no nausea, vomiting, or diarrhea] [no hematuria, dysuria] [no musculoskelatal complaints] [no strokes or seizures] [no skin lesions] EXAMINATION: GENERAL: Well-appearing, well-nourished and in no acute distress. NECK: Supple without JVD or thyromegaly. LUNGS: Breath sounds clear to auscultation bilaterally. Respiration equal and unlabored. No wheezes, rales or rhonchi. HEART: Regular rate and rhythm without murmurs, rubs or gallops. S1 and S2 heard. EXTREMITIES: Normal range of motion, no edema. No clubbing or cyanosis. Peripheral pulses intact and strong. REVIEW OF LABS, ECG & MEDICAL DATA: LABS: White count 7.1, hemoglobin 14.9, platelets 157, d-dimer 0.54, sodium 140, potassium 4.1, BUN 15, creatinine 0.85, calcium 9.3, magnesium 1.8, troponin 3 less than 0.012 EKG: Normal sinus rhythm IMAGING: Shoulder x-ray dated 06/10/2023 demonstrates no acute fracture. Chest x-ray dated 06/10/2023 demonstrates no acute cardiopulmonary process. VITALS: Temp 97.8, pulse 59, respirations 16, blood pressure 110/71, O2 saturation 100% on room air IMPRESSION: 1. Syncope of unknown etiology 2. History of bariatric surgery PLAN: Patient likely has vasovagal and orthostatic syncope. It is noted orthostatic vital signs are negative. We'll schedule for tilt table test tomorrow. I'll order echocardiogram for tomorrow morning. Suspect amitriptyline to be the culprit, especially after patient's bariatric surgery. Continue amitriptyline tonight, as we want to see if we can elicit similar responses on the tilt table test. If so this will likely be discontinued. Further recommendations based on the patient's clinical course. Thank you for the consult and allowing us to participate in the care of this patient. Past Medical History Past Medical History: Fibromyalgia, Rheumatoid Arthritis (RA) History of Any Multi-Drug Resistant Organisms: None Reported Past Surgical History: Orthopedic Surgery, Tubal Ligation, Uterine Ablation Additional Past Surgical History / Comment(s): left ankle surg., right wrist surg. Gastric Sleeve 2021 Past Anesthesia/Blood Transfusion Reactions: No Reported Reaction Past Psychological History: No Psychological Hx Reported Smoking Status: Never smoker Past Alcohol Use History: Rare Past Drug Use History: None Reported - Past Family History Father Family Medical History: Cancer Medications and Allergies Home Medications Medication Instructions Recorded Confirmed Type traMADol HCl [Ultram] 50 mg PO DAILY PRN 03/20/14 06/10/23 History Acetaminophen [Tylenol Extra 1,000 mg PO Q6H PRN 06/10/23 06/10/23 History Strength] Cyclobenzaprine [Flexeril] 10 mg PO HS PRN 06/10/23 06/10/23 History DULoxetine HCL [Cymbalta] 60 mg PO HS 06/10/23 06/10/23 History Gabapentin [Neurontin] 400 mg PO TID 06/10/23 06/10/23 History Propranolol HCl [Propranolol HCl 80 mg PO HS 06/10/23 06/10/23 History ER] Allergies Allergy/AdvReac Type Severity Reaction Status Date / Time No Known Allergies Allergy Verified 06/10/23 14:02 Physical Exam Vitals: Vital Signs Temp Pulse Pulse Pulse Pulse Pulse Resp 06/11/23 08:20 70 72 59 L 06/11/23 07:43 06/11/23 07:00 97.8 F 59 L 16 06/11/23 02:00 98.4 F 60 16 06/10/23 20:09 98.1 F 69 17 06/10/23 20:00 72 16 06/10/23 17:15 77 89 67 06/10/23 17:00 98.7 F 72 16 06/10/23 16:20 76 16 06/10/23 14:48 66 18 BP BP BP BP BP Pulse Ox 06/11/23 08:20 117/79 109/69 103/69 98 06/11/23 07:43 97 06/11/23 07:00 110/71 100 06/11/23 02:00 108/70 97 06/10/23 20:09 122/76 95 06/10/23 20:00 06/10/23 17:15 114/97 110/82 103/71 98 06/10/23 17:00 128/75 97 06/10/23 16:20 100/68 99 06/10/23 14:48 104/77 99 Intake and Output 06/10/23 06/11/23 06/11/23 22:59 06:59 14:59 Other: # Voids 1 2 Weight 103.873 kg Results 06/11/23 06:46 06/11/23 06:41 Cardiac Enzymes 06/10/23 06/10/23 06/11/23 Range/Units 14:21 17:58 06:41 AST 20 (13-35) U/L Troponin I <0.012 <0.012 (0.000-0.034) ng/mL CBC 06/11/23 Range/Units 06:46 WBC 4.90 (4.50-10.00) X 10*3/uL RBC 4.35 (4.10-5.60) X 10*6/uL Hgb 13.3 (12.0-17.0) d/dL Hct 39.3 (37.2-50.0) % Plt Count 111 L (140-440) X 10*3/uL Comprehensive Metabolic Panel 06/11/23 Range/Units 06:41 Sodium 140 (135-145) mmol/L Potassium 4.0 (3.5-5.5) mmol/L Chloride 106 (96-109) mmol/L Carbon Dioxide 24.5 (21.6-31.8) mmol/L BUN 18.0 (9.0-27.0) mg/dL Creatinine 0.9 (0.6-1.5) mg/dL Glucose 84 (70-110) mg/dL Calcium 9.7 (8.7-10.3) mg/dL AST 20 (13-35) U/L ALT 12 (8-49) U/L Alkaline Phosphatase 52 (41-126) U/L Total Protein 5.9 L (6.2-8.2) d/dL Albumin 3.8 (3.8-4.9) d/dL Current Medications Generic Name Dose Route Start Last Admin Trade Name Freq PRN Reason Stop Dose Admin Acetaminophen 650 mg 06/10/23 13:54 06/11/23 08:34 Acetaminophen Tab 325 Mg Tab PO 650 mg Q6HR PRN Administration Mild Pain or Fever > 100.5 Amitriptyline HCl 100 mg 06/10/23 21:45 06/10/23 21:54 Amitriptyline Hcl 50 Mg Tab PO 100 mg HS DARRELL Administration Cyclobenzaprine HCl 10 mg 06/10/23 21:32 Cyclobenzaprine 10 Mg Tab PO HS PRN Pain Duloxetine HCl 60 mg 06/10/23 21:45 06/10/23 21:55 Duloxetine Hcl 60 Mg Capsule.Dr PO 60 mg HS DARRELL Administration Gabapentin 400 mg 06/10/23 22:00 06/11/23 08:32 Gabapentin 400 Mg Cap PO 400 mg TID DARRELL Administration Sodium Chloride 1,000 mls @ 20 mls/hr 06/10/23 14:00 06/10/23 14:44 Saline 0.9% IV 20 mls/hr .Q24H DARRELL Administration Naloxone HCl 0.2 mg 06/10/23 13:54 Naloxone 0.4 Mg/Ml 1 Ml Vial IV Q2M PRN Opioid Reversal Propranolol HCl 80 mg 06/10/23 21:45 06/10/23 21:55 Propranolol La 80 Mg Cap.Sa.24h PO 80 mg HS DARRELL Administration Intake and Output 06/10/23 06/11/23 06/11/23 22:59 06:59 14:59 Other: # Voids 1 2 Weight 103.873 kg 06/11/23 06:46 06/11/23 06:41
--- NOTE | 2023-06-11 13:35 | P.PN ---
Subjective Progress Note Date: 06/11/23 No new complaints. No events on tele overnight. Gen: in no apparent distress, resting comfortably in bed Eyes: PERRL, no scleral injection or icterus HENT: normocephalic, atraumatic, good hearing acuity, moist mucous membranes Neck: no tracheal deviation, full range of motion Resp: good air exchange, breathing comfortably with no accessory muscle use, no tactile fremitus, clear to auscultation bilaterally CVS: good distal perfusion x 4, no pitting edema, regular rate and rhythm without murmurs GI: soft, NTTP, ND, no hepatosplenomegaly : no suprapubic tenderness, no CVAT, car catheter not present MSK: no clubbing, no cyanosis, no noted contractures of extremities Skin: no noted rashes, petechiae; temperature of skin is appropriate Neuro: moving all extremities without signs of weakness, CN II-XII intact Psych: cooperative, euthymic mood, insight and judgment intact Hospital Course: 47-year-old woman with medical history of gastric sleeve surgery, fibromyalgia presented for evaluation of syncope. Upon evaluation, patient is afebrile, 120/82, heart rate 76, 97% on room air. CBC is unremarkable. Basic metabolic panel was unremarkable. Liver function tests are unremarkable. Troponins less than 0.012 him a repeat troponins less than 0.012. Coags are unremarkable. D- dimer is unremarkable. EKG shows a sinus rhythm with low total voltage of QRS. Shoulder x-ray had no acute fracture. Chest x-ray shows normal-sized heart, clear parenchyma bilaterally. Case was discussed with the emergency room provider incision was made to admit the patient to observation for syncope. Assessment: Syncope Fibromyalgia Plan: Cardiology consult reviewed, tilt table test tomorrow Echocardiogram Monitor on telemetry KVO IV fluids Orthostatics twice daily Patient is full code Objective - Vital Signs Vital signs: Vital Signs Temp 97.8 F 06/11/23 07:00 Pulse 59 L 06/11/23 08:20 Resp 16 06/11/23 07:00 BP 103/69 06/11/23 08:20 Pulse Ox 98 06/11/23 08:20 FiO2 Intake & Output 06/10/23 06/11/23 06/11/23 18:59 06:59 18:59 Weight 103.873 kg Other: # Voids 2 - Labs CBC & Chem 7: 06/11/23 06:46 06/11/23 06:41 Labs: Abnormal Lab Results - Last 24 Hours (Table) 06/11/23 06/11/23 Range/Units 06:41 06:46 Plt Count 111 L (140-440) X 10*3/uL Total Protein 5.9 L (6.2-8.2) d/dL
[2023-06-11] MEDS: DULoxetine HCL 60 MG CAPSULE.DR PO SCH (19:57)
[2023-06-11] MEDS: PROPRANOLOL LA 80 MG CAP.SA.24H PO SCH (19:57)
[2023-06-11] MEDS: AMITRIPTYLINE HCL 50 MG TAB PO SCH (19:57)
[2023-06-12] MEDS: SODIUM CHLORIDE 0.9% 1,000 ML IV SCH ×2 (09:27→17:40)
[2023-06-12] MEDS: GABAPENTIN 400 MG CAP PO SCH ×3 (09:28→20:38)
[2023-06-12] MEDS ORDERED: SODIUM CHLORIDE 0.9% 1,000 ML IV SCH (10:00)
--- NOTE | 2023-06-12 10:02 | P.PN ---
Subjective Progress Note Date: 06/12/23 HISTORY OF PRESENT ILLNESS: Patient is a pleasant 47-year-old female with a past medical history of fibromyalgia, rheumatoid arthritis, and gastric sleeve surgery who presented the hospital post syncopal episode. Patient reports she's had 2 syncopal episodes over the last 2 days, both while she was walking in her hallway. She states this past , her episode had no trigger, but she suddenly woke up on the floor. Yesterday, she felt somewhat dizzy prior to passing out. Both episodes were witnessed by her spouse, who reports that she was down for only a couple minutes during each episode. Patient reported that she had no chest pain, fluttering in her chest, palpitations, or any diaphoresis during these episodes. She does report after waking up she felt somewhat flushed and warm. After the second episode the patient presented to the emergency department for evaluation. Her EKG demonstrated normal sinus rhythm with no signs of myocardial infarction. Patient's lab work was noncontributory, demonstrating 3 negative troponins, hemoglobin of 14.9, d-dimer of 0.54, potassium 4.1, BUN of 15, and creatinine 0.85. Patient reports this morning that she feels okay, and has not had any further syncopal feelings since admission. She denies chest pain, shortness of breath, and heart palpitations at this time. LABS: White count 7.1, hemoglobin 14.9, platelets 157, d-dimer 0.54, sodium 140, potassium 4.1, BUN 15, creatinine 0.85, calcium 9.3, magnesium 1.8, troponin 3 less than 0.012 EKG: Normal sinus rhythm IMAGING: Shoulder x-ray dated 06/10/2023 demonstrates no acute fracture. Chest x-ray dated 06/10/2023 demonstrates no acute cardiopulmonary process. VITALS: Temp 97.8, pulse 59, respirations 16, blood pressure 110/71, O2 saturation 100% on room air 06/12/2023 Patient examined this morning at the bedside. Patient denies chest pain or pressure. She denies shortness of breath. No further episodes of syncope. Vital signs are stable PHYSICAL EXAM: VITAL SIGNS: Reviewed. GENERAL: Well-developed in no acute distress. NECK: Supple. No JVD or thyromegaly LUNGS: Respirations even and unlabored. Lungs essentially clear to auscultation bilaterally. HEART: Regular rate and rhythm. S1 and S2 heard. EXTREMITIES: Normal range of motion. No clubbing or cyanosis. Peripheral pulses intact. No lower extremity edema ASSESSMENT: Syncope of unknown etiology History of bariatric surgery Fibromyalgia Rheumatoid arthritis PLAN: Obtain 2-D echo to assess cardiac structure and function Patient to undergo tilt table testing today Dr. Serra evaluated patient yesterday and believes her symptoms may be secondary to amitriptyline. This has been continued as he would like to see if he can elicit similar responses on tilt table testing. If so, will consider discontinuing this medication Further recommendations pending patient's course Nurse practitioner note has been reviewed by physician. Signing provider agrees with the documented findings, assessment, and plan of care. Objective - Vital Signs Vital signs: Vital Signs Temp 98.1 F 06/12/23 07:00 Pulse 62 06/12/23 07:00 Resp 16 06/12/23 07:00 BP 105/66 06/12/23 07:00 Pulse Ox 97 06/12/23 07:00 FiO2 Intake & Output 06/11/23 06/12/23 06/12/23 18:59 06:59 18:59 Intake Total 480 Balance 480 Intake: Oral 480 Other: # Voids 2 1 - Labs CBC & Chem 7: 06/11/23 06:46 06/11/23 06:41 Labs: Abnormal Lab Results - Last 24 Hours (Table) 06/11/23 06/11/23 Range/Units 06:41 06:46 Plt Count 111 L (140-440) X 10*3/uL Total Protein 5.9 L (6.2-8.2) d/dL
--- NOTE | 2023-06-12 11:57 | CA ---
Transthoracic Echo Report Name: Francheska Srinivasan Age: 47 Gender: F : 1975 Exam Date: 06/12/2023 10:59 Exam Location: [facility] Ht (in): 68 Wt (lb): 229 Ordering Physician: Chloe Quigley Attending/Referring Phys: [id number], Dann [employer] Maci Pandya [facility] Procedure CPT: Indications: LV function, syncope Cardiac Hx: Technical Quality: Fair Contrast 1: Total Dose (mL): Contrast 2: Total Dose (mL): MEASUREMENTS (Male / Female) Normal Values 2D ECHO LV Diastolic Diameter PLAX 4.6 cm 4.2 - 5.9 / 3.9 - 5.3 cm LV Systolic Diameter PLAX 2.9 cm IVS Diastolic Thickness 0.9 cm 0.6 - 1.0 / 0.6 - 0.9 cm LVPW Diastolic Thickness 1.0 cm 0.6 - 1.0 / 0.6 - 0.9 cm LV Relative Wall Thickness 0.4 LVOT Diameter 2.0 cm Ascending Aorta Diameter 2.9 cm M-MODE Aortic Root Diameter MM 2.8 cm LA Systolic Diameter MM 3.1 cm LA Ao Ratio MM 1.1 AV Cusp Separation MM 2.4 cm DOPPLER AV Peak Velocity 129.2 cm/s AV Peak Gradient 6.7 mmHg AV Mean Velocity 96.9 cm/s AV Mean Gradient 4.1 mmHg AV Velocity Time Integral 28.2 cm LVOT Peak Velocity 102.8 cm/s LVOT Peak Gradient 4.2 mmHg LVOT Velocity Time Integral 22.9 cm LVOT Stroke Volume 73.4 cm??? LVOT Stroke Volume Index 33.9 ml/m??? LVOT Cardiac Index 2034.4 cm???/min???m??? AV Area Cont Eq vti 2.6 cm??? AV Area Cont Eq pk 2.6 cm??? Mitral E Point Velocity 63.8 cm/s Mitral A Point Velocity 64.3 cm/s Mitral E to A Ratio 1.0 MV Deceleration Time 236.6 ms LV E' Lateral Velocity 9.8 cm/s Mitral E to LV E' Lateral Ratio 6.5 LV E' Septal Velocity 8.6 cm/s Mitral E to LV E' Septal Ratio 7.4 TR Peak Velocity 193.1 cm/s TR Peak Gradient 14.9 mmHg Right Atrial Pressure 8.0 mmHg Pulmonary Artery Systolic Pressu 22.9 mmHg Right Ventricular Systolic Press 22.9 mmHg FINDINGS Left Ventricle Left ventricular wall thickness normal. Left ventricular cavity size normal. No obvious regional wall motion abnormalities. Left ventricular ejection fraction is estimated at 55-60%. Right Ventricle Right ventricle at upper limits of normal. Right Atrium Normal right atrial size. Left Atrium Normal left atrial size. Mitral Valve Structurally normal mitral valve. Trace mitral regurgitation. Aortic Valve Trileaflet aortic valve. No aortic valve stenosis or regurgitation. Tricuspid Valve Structurally normal tricuspid valve. Trace tricuspid regurgitation. Pulmonic Valve Structurally normal pulmonic valve. No pulmonic regurgitation. Pericardium Minimal pericardial effusion (normal variant). Aorta Normal size aortic root and proximal ascending aorta. CONCLUSIONS Normal LV function Previewed by: Dr. Richard Fisher MD (Electronically Signed) Final Date: 12 June 2023 11:56
[2023-06-12] MEDS ORDERED: SODIUM CHLORIDE 0.9% 500 ML 500 ML IV ONE (13:58)
[2023-06-12] MEDS: ACETAMINOPHEN TAB 325 MG TAB PO PRN (15:59)
[2023-06-12 16:00] VITALS: BMI 34.8
--- NOTE | 2023-06-12 16:22 | P.EPPROC ---
- EP Procedure Note Electrophysiology Procedure Note: Diagnosis Recurrent syncope Twelve-lead EKG shows sinus rhythm normal KS narrow QRS normal ST segments normal QT interval Tilt table test per protocol Baseline blood pressure 113/60 mmHg Baseline heart rate 66 beats a minute Patient was tilted upright at an angle of 70 per protocol Mild increase in heart rate No cigarette doing change in blood pressure The patient complained of feeling clammy. At that time her blood pressure is normal heart rate is 102 beats a minute Later she complained of tingling in her face and at that time, heart rate is 107 beats a minute with normal blood pressure Still later she complained of nausea or warmth. Heart rate 115 beats a minute, blood pressure 102/76. His mercury Patient is laid supine heart rate decreased to 73 beats a minute Impression normal 12-lead EKG Orthostatic intolerance
--- NOTE | 2023-06-12 16:52 | P.PN ---
Subjective Progress Note Date: 06/12/23 No new complaints. No events on tele overnight. Tilt table test today was positive for orthostatic intolerance. Gen: in no apparent distress, resting comfortably in bed Eyes: PERRL, no scleral injection or icterus HENT: normocephalic, atraumatic, good hearing acuity, moist mucous membranes Neck: no tracheal deviation, full range of motion Resp: good air exchange, breathing comfortably with no accessory muscle use, no tactile fremitus, clear to auscultation bilaterally CVS: good distal perfusion x 4, no pitting edema, regular rate and rhythm without murmurs GI: soft, NTTP, ND, no hepatosplenomegaly : no suprapubic tenderness, no CVAT, car catheter not present MSK: no clubbing, no cyanosis, no noted contractures of extremities Skin: no noted rashes, petechiae; temperature of skin is appropriate Neuro: moving all extremities without signs of weakness, CN II-XII intact Psych: cooperative, euthymic mood, insight and judgment intact Hospital Course: 47-year-old woman with medical history of gastric sleeve surgery, fibromyalgia presented for evaluation of syncope. Upon evaluation, patient is afebrile, 120/82, heart rate 76, 97% on room air. CBC is unremarkable. Basic metabolic panel was unremarkable. Liver function tests are unremarkable. Troponins less than 0.012 him a repeat troponins less than 0.012. Coags are unremarkable. D- dimer is unremarkable. EKG shows a sinus rhythm with low total voltage of QRS. Shoulder x-ray had no acute fracture. Chest x-ray shows normal-sized heart, clear parenchyma bilaterally. Case was discussed with the emergency room provider incision was made to admit the patient to observation for syncope. Assessment: Syncope Fibromyalgia Plan: Cardiology consult reviewed, tilt table test reviewed, + for orthostatic intolerance. Echocardiogram reviewed, good EF, no WMA Monitor on telemetry = no events. KVO IV fluids Orthostatics twice daily Patient is full code Objective - Vital Signs Vital signs: Vital Signs Temp 98.4 F 06/12/23 14:00 Pulse 79 06/12/23 14:00 Resp 16 06/12/23 14:00 BP 94/69 06/12/23 14:00 Pulse Ox 100 06/12/23 14:00 FiO2 Intake & Output 0806/12/23 06/12/23 18:59 06:59 18:59 Intake Total 480 100 Balance 480 100 Weight 103.873 kg Intake: IV 100 Oral 480 Other: # Voids 2 1 - Labs CBC & Chem 7: 06/11/23 06:46 06/11/23 06:41
[2023-06-12] MEDS: DULoxetine HCL 60 MG CAPSULE.DR PO SCH (20:38)
[2023-06-12] MEDS: PROPRANOLOL LA 80 MG CAP.SA.24H PO SCH (20:38)
[2023-06-12] MEDS: AMITRIPTYLINE HCL 50 MG TAB PO SCH (20:39)
[2023-06-13 07:42] VITALS: BP 107/65; PULSE 60; RESP 16; TEMP 98.3
[2023-06-13] MEDS: GABAPENTIN 400 MG CAP PO SCH (08:35)
--- NOTE | 2023-06-13 09:32 | P.PN ---
Subjective HISTORY OF PRESENT ILLNESS: Patient is a pleasant 47-year-old female with a past medical history of fibromyalgia, rheumatoid arthritis, and gastric sleeve surgery who presented the hospital post syncopal episode. Patient reports she's had 2 syncopal episodes over the last 2 days, both while she was walking in her hallway. She states this past , her episode had no trigger, but she suddenly woke up on the floor. Yesterday, she felt somewhat dizzy prior to passing out. Both episodes were witnessed by her spouse, who reports that she was down for only a couple minutes during each episode. Patient reported that she had no chest pain, fluttering in her chest, palpitations, or any diaphoresis during these episodes. She does report after waking up she felt somewhat flushed and warm. After the second episode the patient presented to the emergency department for evaluation. Her EKG demonstrated normal sinus rhythm with no signs of myocardial infarction. Patient's lab work was noncontributory, demonstrating 3 negative troponins, hemoglobin of 14.9, d-dimer of 0.54, potassium 4.1, BUN of 15, and creatinine 0.85. Patient reports this morning that she feels okay, and has not had any further syncopal feelings since admission. She denies chest pain, shortness of breath, and heart palpitations at this time. LABS: White count 7.1, hemoglobin 14.9, platelets 157, d-dimer 0.54, sodium 140, potassium 4.1, BUN 15, creatinine 0.85, calcium 9.3, magnesium 1.8, troponin 3 less than 0.012 EKG: Normal sinus rhythm IMAGING: Shoulder x-ray dated 06/10/2023 demonstrates no acute fracture. Chest x-ray dated 06/10/2023 demonstrates no acute cardiopulmonary process. VITALS: Temp 97.8, pulse 59, respirations 16, blood pressure 110/71, O2 saturation 100% on room air 06/12/2023 Patient examined this morning at the bedside. Patient denies chest pain or pressure. She denies shortness of breath. No further episodes of syncope. Vital signs are stable 06/13/2023 Patient examined this morning at the bedside. Patient denies chest pain or pressure. She denies shortness of breath. Denies dizziness or lightheadedness. She underwent tilt table testing yesterday revealing orthostatic intolerance. Echocardiogram obtained revealing preserved LV systolic function with mild MR and mild TR PHYSICAL EXAM: VITAL SIGNS: Reviewed. GENERAL: Well-developed in no acute distress. NECK: Supple. No JVD or thyromegaly LUNGS: Respirations even and unlabored. Lungs essentially clear to auscultation bilaterally. HEART: Regular rate and rhythm. S1 and S2 heard. EXTREMITIES: Normal range of motion. No clubbing or cyanosis. Peripheral pulses intact. No lower extremity edema ASSESSMENT: Syncope of unknown etiology History of bariatric surgery Fibromyalgia Rheumatoid arthritis Orthostatic intolerance PLAN: Recommend discontinuing or decreasing dose of amitriptyline. Will defer to internal medicine Patient is stable for discharge home today from a cardiac standpoint Nurse practitioner note has been reviewed by physician. Signing provider agrees with the documented findings, assessment, and plan of care. Objective - Vital Signs Vital signs: Vital Signs Temp 98.3 F 06/13/23 07:41 Pulse 60 06/13/23 07:41 Resp 16 06/13/23 08:50 BP 107/65 06/13/23 07:41 Pulse Ox 97 06/13/23 08:38 FiO2 Intake & Output 06/12/23 06/13/23 06/13/23 18:59 06:59 18:59 Intake Total 100 Balance 100 Weight 103.873 kg Intake: IV 100 Other: Voiding Method Toilet # Voids 1 - Labs CBC & Chem 7: 06/11/23 06:46 06/11/23 06:41
--- NOTE | 2023-06-13 10:53 | P.DS ---
Providers Date of admission: 06/10/23 13:54 Expected date of discharge: 06/13/23 Attending physician: Poncho Lucas MD Consults: 06/10/23 13:54 Consult Physician Routine Consulting Provider: Marcus Serra Consult Reason/Comments: syncope Do you want consulting provider notified?: Yes Primary care physician: Katey Dumont Hospital Course: Assessment: Syncope Fibromyalgia Hospital Course: 47-year-old woman with medical history of gastric sleeve surgery, fibromyalgia presented for evaluation of syncope. Upon evaluation, patient is afebrile, 120/82, heart rate 76, 97% on room air. CBC is unremarkable. Basic metabolic panel was unremarkable. Liver function tests are unremarkable. Troponins less than 0.012 him a repeat troponins less than 0.012. Coags are unremarkable. D- dimer is unremarkable. EKG shows a sinus rhythm with low total voltage of QRS. Shoulder x-ray had no acute fracture. Chest x-ray shows normal-sized heart, clear parenchyma bilaterally. Case was discussed with the emergency room provider incision was made to admit the patient to observation for syncope. Pt underwent tilt-table test after evaluation by cardiology and was found to have orthostatic intolerance attributed to her amitriptyline and this was d/c'd on discharge. No events were noted on telemetry during her stay. Echo did show good EF, no WMA. She will f/u with PCP. I spent 35 minutes coordinating this discharge on 06/13 Gen: in no apparent distress, resting comfortably in bed Eyes: PERRL, no scleral injection or icterus HENT: normocephalic, atraumatic, good hearing acuity, moist mucous membranes Neck: no tracheal deviation, full range of motion Resp: good air exchange, breathing comfortably with no accessory muscle use, no tactile fremitus, clear to auscultation bilaterally CVS: good distal perfusion x 4, no pitting edema, regular rate and rhythm without murmurs GI: soft, NTTP, ND, no hepatosplenomegaly : no suprapubic tenderness, no CVAT, car catheter not present MSK: no clubbing, no cyanosis, no noted contractures of extremities Skin: no noted rashes, petechiae; temperature of skin is appropriate Neuro: moving all extremities without signs of weakness, CN II-XII intact Psych: cooperative, euthymic mood, insight and judgment intact Patient Condition at Discharge: Good Plan - Discharge Summary Discharge Rx Participant: Yes New Discharge Prescriptions: New traZODone HCL [Desyrel] 25 mg PO HS PRN #30 tab PRN Reason: Insomnia Continue traMADol HCl [Ultram] 50 mg PO DAILY PRN PRN Reason: Pain Propranolol HCl [Propranolol HCl ER] 80 mg PO HS Gabapentin [Neurontin] 400 mg PO TID DULoxetine HCL [Cymbalta] 60 mg PO HS Cyclobenzaprine [Flexeril] 10 mg PO HS PRN PRN Reason: Pain Acetaminophen [Tylenol Extra Strength] 1,000 mg PO Q6H PRN PRN Reason: Fever And/ Or Pain Discontinued Amitriptyline HCl [Elavil] 100 mg PO HS Discharge Medication List traMADol HCl [Ultram] 50 mg PO DAILY PRN 03/20/14 [History] Acetaminophen [Tylenol Extra Strength] 1,000 mg PO Q6H PRN 06/10/23 [History] Cyclobenzaprine [Flexeril] 10 mg PO HS PRN 06/10/23 [History] DULoxetine HCL [Cymbalta] 60 mg PO HS 06/10/23 [History] Gabapentin [Neurontin] 400 mg PO TID 06/10/23 [History] Propranolol HCl [Propranolol HCl ER] 80 mg PO HS 06/10/23 [History] traZODone HCL [Desyrel] 25 mg PO HS PRN #30 tab 06/13/23 [Rx] Follow up Appointment(s)/Referral(s): Marcus Serra MD [STAFF PHYSICIAN] - 2 Weeks (Follow-up with Dr. Ponce Wesley in about 2 weeks Discontinue amitriptyline as an outpatient) Katey Dumont DO [Primary Care Provider] - 1-2 days Discharge Disposition: HOME SELF-CARE
== END 2023-06-13 11:27 | disposition home or self-care (01) ==
LOC: EC 11:23 → 6NMEDSUR 13:54
PROVIDERS: ADMIT Student in an Organized Health Care Education/Training Program; ATTEND Student in an Organized Health Care Education/Training Program
DX: R55 Syncope and collapse (principal); M79.7 Fibromyalgia; G90.A Postural orthostatic tachycardia syndrome [POTS]; M06.9 Rheumatoid arthritis, unspecified; Z98.84 Bariatric surgery status; Z79.899 Other long term (current) drug therapy; Z80.9 Family history of malignant neoplasm, unspecified
CPT/HCPCS: 90471; 96372; 99285; 36415; 94760 ×2; 93005; 93306; 93660; 85379; 80053 ×2; 83735; 84484; 85025 ×2; 85610; 85730; 73030; 71046; 90715; G0378 ×4

== ENCOUNTER → 2023-07-13 | Outpatient (CLI) | payer BC ==
[2023-07-13 15:19] LABS: % Iron Saturation 23.68 (12.00-50.00); BUN/Creat Ratio 24.75 Ratio (12.00-20.00); Blood Urea Nitrogen 19.8 mg/dL (9.0-27.0); Chol/HDL Ratio 4.87 Ratio; Glucose 99 mg/dL (70-110); Iron 63 UG/DL (50-175); LDL Cholesterol,Calculated 139.5 mg/dL (0.0-131.0); Total Iron Binding Capacity 266 UG/DL (228-460)
[2023-07-13 15:20] LABS: ALT 8 U/L (8-49); AST 12 U/L (13-35); Albumin/Globulin Ratio 1.82 Ratio (1.60-3.17); Alkaline Phosphatase 47 U/L (41-126); Calcium 9.5 mg/dL (8.7-10.3); Carbon Dioxide 24.3 mmol/L (21.6-31.8); Chloride 109 mmol/L (96-109); Globulin 2.2 d/dL (1.6-3.3); Potassium 4.7 mmol/L (3.5-5.5); Sodium 143 mmol/L (135-145); Total Bilirubin 0.3 mg/dL (0.3-1.2); Total Protein 6.2 d/dL (6.2-8.2)
[2023-07-13 16:16] LABS: HCT 41.6 % (37.2-50.0); HGB 14.1 d/dL (12.0-17.0); MCH 30.9 pg (27.0-32.0); MCHC 33.9 d/dL (32.0-37.0); Mean Platelet Volume 10.9 FL (9.5-12.2); NRBC Per 100 WBC 0 X 10*3/uL (0.00-0.01); Platelet Count 150 X 10*3/uL (140-440); RBC 4.57 X 10*6/uL (4.10-5.60); RDW 13.1 % (11.5-14.5); WBC 5.35 X 10*3/uL (4.50-10.00)
[2023-07-14 13:51] LABS: Zinc, Serum 87 ug/dL (60-130)
[2023-07-17 15:01] LABS: Vit B1(Thiamine) 84 ug/L (38-122)
== END | disposition home or self-care (01) ==
LOC: LABWHC1 08:52
PROVIDERS: ATTEND Surgery
DX: Z98.84 Bariatric surgery status (principal); E11.9 Type 2 diabetes mellitus without complications; E78.00 Pure hypercholesterolemia, unspecified; D50.9 Iron deficiency anemia, unspecified; K91.1 Postgastric surgery syndromes; D51.8 Other vitamin B12 deficiency anemias; E55.9 Vitamin D deficiency, unspecified
CPT/HCPCS: 36415; 80053; 80061; 82306; 82607; 82746; 83036; 83540; 83550; 84207; 84425; 84590; 84630; 85027

== ENCOUNTER 2023-11-29 19:14 | Emergency (ER) | payer BC ==
[2023-11-29 20:52] VITALS: BP 133/64; RESP 18; TEMP 98.1
--- NOTE | 2023-11-29 21:15 | XR ---
EXAMINATION TYPE: XR shoulder complete RT DATE OF EXAM: 11/29/2023 9:01 PM CLINICAL INDICATION:Female, 48 years old with history of injury; H COMPARISON: None TECHNIQUE: XR shoulder complete RT; examined in AP, internally rotated and scapular Y projections. FINDINGS: No evidence of acute osseous pathology, joint dislocation, or soft tissue swelling. The remaining po rtions of the visualized chest are unremarkable. Mild degeneration changes of the left acromion and distal clavicle. IMPRESSION: No acute osseous pathology. Mild shoulder osteoarthrosis.
--- NOTE | 2023-11-29 21:16 | XR ---
EXAMINATION TYPE: XR chest 2V DATE OF EXAM: 11/29/2023 9:01 PM CLINICAL INDICATION:Female, 48 years old with history of cough; COMPARISON: Chest radiographs from 06/10/2023 TECHNIQUE: XR chest 2V Frontal and lateral views of the chest. FINDINGS: Lungs/Pleura: There is no evidence of pleural effusion, focal consolidation, or pneumothorax. Pulmonary vascularity: Unremarkable. Heart/mediastinum: Cardiomediastinal silhouette is unremarkable. Musculoskeletal: No acute osseous pathology. Other findings: None IMPRESSION: No acute cardiopulmonary disease/process.
[2023-11-29] MEDS ORDERED: methylPREDNISolone SOD SUCCI 125 MG/2 ML VIAL IM ONE (21:32)
[2023-11-29] MEDS ORDERED: KETOROLAC 15 MG/ML 1 ML VIAL IM STA (21:32)
[2023-11-29] MEDS ORDERED: IPRATROPIUM-ALBUTEROL 3 ML NEB INHALATION STA (21:32)
--- NOTE | 2023-11-29 21:41 | ED ---
Upper Extremity HPI - General Chief Complaint: Extremity Injury, Upper Stated Complaint: RT shoulder pain Time Seen by Provider: 11/29/23 21:17 Source: patient Mode of arrival: ambulatory Limitations: no limitations - History of Present Illness Initial Comments: 48-year-old female presenting with chief complaint of right shoulder pain. Patient states that last week she threw a trash bag into the trash can and immediately following had pain in the right shoulder. She states that this is gotten worse over the past week. She has pain that radiates down her arm from her shoulder. No numbness or tingling. No weakness. Pain is changed with different positions, seems to improve when the arm is supported. She has been taking muscle relaxers, ibuprofen, and tramadol. Patient also believes she may have diabetes. She states that she has had a cough for the past week. She states that she feels as though she has congestion in the chest. No chest pain or difficulty breathing. No fevers. - Related Data Home Medications Medication Instructions Recorded Confirmed traMADol HCl [Ultram] 50 mg PO DAILY PRN 03/20/14 06/10/23 Acetaminophen [Tylenol Extra 1,000 mg PO Q6H PRN 06/10/23 06/10/23 Strength] Cyclobenzaprine [Flexeril] 10 mg PO HS PRN 06/10/23 06/10/23 DULoxetine HCL [Cymbalta] 60 mg PO HS 06/10/23 06/10/23 Gabapentin [Neurontin] 400 mg PO TID 06/10/23 06/10/23 Propranolol HCl [Propranolol HCl 80 mg PO HS 06/10/23 06/10/23 ER] Previous Rx's Medication Instructions Recorded traZODone HCL [Desyrel] 25 mg PO HS PRN #30 tab 06/13/23 Albuterol Sulfate [Albuterol 1 puff PO Q4-6H PRN #8.5 gm 11/29/23 Sulfate Hfa] HYDROcodone/APAP 7.5-325MG [[place] 1 tab PO Q6HR PRN 3 Days #12 tab 11/29/23 7.5-325] methylPREDNISolone Dose Pack 4 mg PO DIRECTED #1 packet 11/29/23 [Medrol Dose Pack] Allergies Allergy/AdvReac Type Severity Reaction Status Date / Time No Known Allergies Allergy Verified 01/31/24 20:46 Review of Systems ROS Statement: Those systems with pertinent positive or pertinent negative responses have been documented in the HPI. ROS Other: All systems not noted in ROS Statement are negative. Past Medical History Past Medical History: Fibromyalgia, Rheumatoid Arthritis (RA) History of Any Multi-Drug Resistant Organisms: None Reported Past Surgical History: Orthopedic Surgery, Tubal Ligation, Uterine Ablation Additional Past Surgical History / Comment(s): left ankle surg., right wrist surg. Gastric Sleeve 2021 Past Anesthesia/Blood Transfusion Reactions: No Reported Reaction Past Psychological History: No Psychological Hx Reported Smoking Status: Never smoker Past Alcohol Use History: Rare Past Drug Use History: None Reported - Past Family History Father Family Medical History: Cancer General Exam Limitations: no limitations General appearance: alert, in no apparent distress Head exam: Present: atraumatic, normocephalic Eye exam: Present: normal appearance, EOMI Neck exam: Present: normal inspection Respiratory exam: Present: wheezes (Faint wheezes heard on exhale). Absent: respiratory distress, rales, rhonchi, stridor Cardiovascular Exam: Present: regular rate, normal rhythm, normal heart sounds. Absent: systolic murmur, diastolic murmur, rubs, gallop, clicks Right Shoulder Exam: Present: normal inspection, full ROM, tenderness. Absent: deformity Vascular: Absent: vascular compromise Neurological exam: Present: alert, oriented X3 Psychiatric exam: Present: normal affect, normal mood Skin exam: Present: warm, dry Course Vital Signs 11/29/23 11/29/23 11/29/23 20:42 22:04 22:13 Temperature 98.1 F Pulse Rate 67 62 64 Respiratory 18 Rate Blood Pressure 133/64 O2 Sat by Pulse 100 Oximetry Medical Decision Making - Medical Decision Making Was pt. sent in by a medical professional or institution (, PA, STEREOTYPER, urgent care, hospital, or skilled nursing...) When possible be specific @ -No Did you speak to anyone other than the patient for history (EMS, parent, family, police, friend...)? What history was obtained from this source @ -No Did you review nursing and triage notes (agree or disagree)? Why? @ -I reviewed and agree with nursing and triage notes Were old charts reviewed (outside hosp., previous admission, EMS record, old E KG, old radiological studies, urgent care reports/EKG's, skilled nursing records)? Report findings @ -No old charts were reviewed Differential Diagnosis (chest pain, altered mental status, abdominal pain women, abdominal pain men, vaginal bleeding, weakness, fever, dyspnea, syncope, headache, dizziness, GI bleed, back pain, seizure, CVA, palpatations, mental health, musculoskeletal)? @ -Differential Musculoskeletal Muscular strain, contusion, ligament sprain, fracture, arthritis, septic arthritis, bursitis, cellulitis, muscle spasm, nerve compression, DVT, arterial occlusion, herpes zoster, electrolyte abnormality, tumor.... This is not meant to be in all inclusive list EKG interpreted by me (3pts min.). @ -As above X-rays interpreted by me (1pt min.). @ -Shoulder x-ray shows no acute osseous pathology. There is mild shoulder osteoarthrosis. Chest x-ray shows no acute cardiopulmonary process CT interpreted by me (1pt min.). @ -None done U/S interpreted by me (1pt. min.). @ -None done What testing was considered but not performed or refused? (CT, X-rays, U/S, labs)? Why? @ -None What meds were considered but not given or refused? Why? @ -None Did you discuss the management of the patient with other professionals (professionals i.e. , PA, STEREOTYPER, lab, RT, psych nurse, director of social media marketing, armature bander, teacher, parole or probation officer, bottle caser)? Give summary @ -No Was smoking cessation discussed for >3mins.? @ -No Was critical care preformed (if so, how long)? @ -No Were there social determinants of health that impacted care today? How? (Homelessness, low income, unemployed, alcoholism, drug addiction, transportation, low edu. Level, literacy, decrease access to med. care, senior living, rehab)? @ -No Was there de-escalation of care discussed even if they declined (Discuss DNR or withdrawal of care, Hospice)? DNR status @ -No What co-morbidities impacted this encounter? (DM, HTN, Smoking, COPD, CAD, Cancer, CVA, ARF, Chemo, Hep., AIDS, mental health diagnosis, sleep apnea, morbid obesity)? @ -None Was patient admitted / discharged? Hospital course, mention meds given and route, prescriptions, significant lab abnormalities, going to OR and other pertinent info. @ -48-year-old female presenting with chief complaint of right shoulder pain. She had an injury several days ago and has had worsening pain to the shoulder. Pain is affected by range of motion, she states that it seems to be somewhat alleviated when the arm is supported. She is neurovascularly intact. She is also complaining of a cough over the last week, believes she may have bronchitis. No chest pain or difficulty breathing. On auscultation there are faint wheezes heard on the exhale. Chest x-ray shows no acute process. Shoulder x-ray shows no fracture or dislocation. Patient is treated with Tor adol, Solu-Medrol, and DuoNeb. She is provided with an arm sling and albuterol inhaler and Medrol Dosepak for home. Follow-up with PCP. Report back to ER with any new or worsening symptoms. Discussed return parameters and answered all questions. Patient conveyed verbal understanding and agreed to the plan. I discussed this case in detail with my attending Dr. Coker Undiagnosed new problem with uncertain prognosis? @ -No Drug Therapy requiring intensive monitoring for toxicity (Heparin, Nitro, Insulin, Cardizem)? @ -No Were any procedures done? @ -No Diagnosis/symptom? @ -Shoulder pain, bronchitis Acute, or Chronic, or Acute on Chronic? @ -Acute Uncomplicated (without systemic symptoms) or Complicated (systemic symptoms)? @ -Uncomplicated Side effects of treatment? @ -No Exacerbation, Progression, or Severe Exacerbation? @ -No Poses a threat to life or bodily function? How? (Chest pain, [place], [place], pneumonia, PE, COPD, DKA, ARF, appy, cholecystitis, CVA, Diverticulitis, Homicidal, Suicidal, threat to staff... and all critical care pts) @ -No Disposition Clinical Impression: Shoulder pain, Bronchitis Disposition: HOME SELF-CARE Condition: Good Instructions (If sedation given, give patient instructions): Acute Bronchitis (ED), Shoulder Pain (ED) Additional Instructions: Follow-up with PCP. Report back to ER with any new or worsening symptoms. Prescriptions: Albuterol Sulfate [Albuterol Sulfate Hfa] 1 puff PO Q4-6H PRN #8.5 gm PRN Reason: Shortness Of Breath methylPREDNISolone Dose Pack [Medrol Dose Pack] 4 mg PO DIRECTED #1 packet HYDROcodone/APAP 7.5-325MG [[place] 7.5-325] 1 tab PO Q6HR PRN 3 Days #12 tab PRN Reason: Pain Is patient prescribed a controlled substance at d/c from ED?: Yes If prescribed controlled substance>3 days was MAPS reviewed?: Prescribed <3 Days If opioid is for acute pain is fill amount 7 days or less?: Yes Referrals: Katey Dumont DO [Primary Care Provider] - 1-2 days Sunil Corley MD [STAFF PHYSICIAN] - 1-2 days Time of Disposition: 21:41
[2023-11-29 22:38] VITALS: PULSE 64
== END 2023-11-29 22:16 | disposition home or self-care (01) ==
LOC: EC 19:14
DX: M25.511 Pain in right shoulder (principal); J40 Bronchitis, not specified as acute or chronic
CPT/HCPCS: 94640; 73030; 71046; 99283; 96372 ×2; J2930; J1885